=== PATIENT | female | born 1990 | race Caucasian/White ===

== ENCOUNTER 2018-11-05 11:46 | Emergency (ER) | payer OTHER ==
[~2018-11-05] VITALS: Ht 180.3 cm; Wt 117.9 kg
[~2018-11-05 11:46] MED LIST: CEPH-263 PO
[2018-11-05] MEDS ORDERED: ORPH-16 PO (12:23)
[2018-11-05] MEDS ORDERED: KETO10TA PO (12:23)
[2018-11-05] MEDS ORDERED: HYDR-3165 PO (12:23)
--- NOTE | 2018-11-05 12:23 | PHYS DOC ---
Past History Past Medical History: No Pertinent History Past Surgical History: Alcohol Use: None Drug Use: None Adult General Chief Complaint Chief Complaint: BACK PAIN OR INJURY [facility] Patient is a 28-year-old female who presents with complaint of midthoracic back pain for the last couple of days. Patient states that she saw her chiropractor last week for some pain in her back and after the treatment, she has had increase in pain that is localized to her mid thoracic region on the left. She states that pain is worsened with movement and deep breathing. She denies any radiation of the pain and has had no loss of bowel or bladder control. She denies any abdominal pain, nausea or vomiting. Review of Systems Review of Systems Constitutional: Denies fever or chills [] Respiratory: Denies cough or shortness of breath [] Cardiovascular: No additional information not addressed in [facility] [] GI: Denies abdominal pain, nausea, vomiting or diarrhea [] Musculoskeletal: Complains of midthoracic back pain [] Integument: Denies rash or skin lesions [] Allergies Allergies Allergies Coded Allergies Type Severity Reaction Last Updated Verified No Known Drug Allergies 11/22/14 No Physical Exam Physical Exam Constitutional: Well developed, well nourished, no acute distress, non-toxic appearance. [] Neck: Normal range of motion, no tenderness, supple, no stridor. [] Cardiovascular: Regular rate and rhythm [] Lungs & Thorax: Bilateral breath sounds clear to auscultation [] Abdomen: Bowel sounds normal, soft, no tenderness. [] Skin: Warm, dry, no erythema, no rash. [] Back: There is tenderness to palpation with tissue texture change and palpable spasm around T8 on the left.. [] EKG EKG [] Radiology/Procedures Radiology/Procedures [] Course & Med Decision Making Course & Med Decision Making Pertinent Labs and Imaging studies reviewed. (See chart for details) [] Dragon Disclaimer Dragon Disclaimer This electronic medical record was generated, in whole or in part, using a voice recognition dictation system. Departure Departure: Impression: Primary Impression: Acute back pain Disposition: 01 HOME, SELF-CARE Condition: STABLE Referrals: RAMESH PELAYO DO (PCP) Patient Instructions: Back Pain, Adult Scripts Orphenadrine Citrate (ORPHENADRINE CITRATE) 100 Mg Tablet.er 1 TAB PO BID PRN for MUSCLE SPASMS, #14 TAB Prov: VALERIA NG Jr. DO 11/05/18 Ketorolac Tromethamine (KETOROLAC TROMETHAMINE) 10 Mg Tablet 1 TAB PO PRN Q6HRS PRN for PAIN, #20 TAB Prov: VALERIA NG Jr. DO 11/05/18 Hydrocodone Bit/Acetaminophen (NORCO 5-325 TABLET) 1 Each Tablet 1 TAB PO PRN Q6HRS PRN for PAIN, #12 TAB 0 Refills Prov: VALERIA NG Jr. DO 11/05/18 Problem Qualifiers Primary Impression: Acute back pain Back pain location: thoracic back pain Back pain laterality: left Qualified Codes: M54.6 - Pain in thoracic spine VALERIA NG Jr. DO Nov 05, 2018 12:23
[2018-11-05] MEDS ORDERED: KETOROLAC 60 MG/2 ML VIAL. IM ONE (12:45)
[2018-11-05] MEDS ORDERED: DEXAMETHASONE SOD PHOS 10 MG/ML VIAL IM ONE (12:45)
[2018-11-05 12:53] VITALS: BP 126/84
== END 2018-11-05 12:55 | disposition home or self-care (01) ==
LOC: ER 11:46
DX: M54.6 Pain in thoracic spine (principal); Z98.890 Other specified postprocedural states
CPT/HCPCS: 96372; 99283; J1100; J1885

== ENCOUNTER 2021-03-09 13:36 | Emergency (ER) | payer OTHER ==
[~2021-03-09] VITALS: Ht 177.8 cm; Wt 128.2 kg
[~2021-03-09 13:36] MED LIST changes: +HYDR-3165 PO; +KETO10TA PO; +ORPH-16 PO
[2021-03-09] MEDS ORDERED: MORPHINE SULFATE 4 MG/ML DISP.SYRIN. ONE (14:04)
--- NOTE | 2021-03-09 14:14 | PHYS DOC ---
MODERATE SEDATION ASSESSMENT* RISKS/ALTERNATIVES Risks/Alternatives Risks and alternatives of this type of sedation and procedure discussed with: RISK/ALTERNATIVES DISCUSSED: Patient H & P ON CHART H & P H & P on chart and reviewed for co-morbid conditions and appropriate labs. H&P ON CHART: Yes STATUS PREG STATUS ASSESSED: Yes MEDS/ALLERGIES REVIEWED Meds/Allergies Reviewed Medications and Allergies including time and route of recently administered narcotics and sedatives. MEDS/ALLERGIES REVIEWED: Yes ASA RATING ASA RATING: I AIRWAY ASSESSMENT Airway Assessment Airway patency, oral function limitations, presence of caps, crowns, dentures, partials, and ability to extend neck assessed. AIRWAY ASSESSMENT: Yes MALLAMPATI SCORE MALLAMPATI SCORE: II PRE-SEDATION ASSESSMENT PRE-SEDATION PHYSICAL: Yes RIK ROSA MD Mar 09, 2021 14:14
[2021-03-09] MEDS ORDERED: MORPHINE SULFATE 4 MG/ML DISP.SYRIN. IV ONE (14:15)
[2021-03-09] MEDS ORDERED: PROPOFOL 20 ML IV ONE (14:15)
--- NOTE | 2021-03-09 14:16 | RAD ---
EXAM: Left shoulder, 2 views. HISTORY: Dislocation. COMPARISON: None. FINDINGS: 2 views of the left shoulder obtained. There is an anterior shoulder dislocation. No concom itant fracture is seen. IMPRESSION: Left shoulder dislocation. Follow-up following closed reduction is recommended to exclude post reduction concomitant fracture. Electronically signed by: Frances Chen MD (03/09/2021 2:14 PM) [id number]
--- NOTE | 2021-03-09 14:17 | PHYS DOC ---
Past History Past Medical History: No Pertinent History Past Surgical History: Appendectomy, , Other Alcohol Use: None Drug Use: None Adult General Chief Complaint Chief Complaint: SHOULDER INJURY [facility] HPI Patient is a 30-year-old female presents to the emergency room complaining of left shoulder pain. Patient states she was fishing and she went to catch her real when she felt her shoulder pop out of place. She has had this happen 2 or 5 times previously. She had surgery on her shoulder 3 years ago to fix this and has not since had a dislocation. She states this feels very similar to previous dislocations. She is sharp aching pain in her left shoulder that radiates down her arm. She has to support her arm with her leg. She is unable to move the arm. She is able to move the wrist and hand without difficulty. She denies any kind of numbness. She denies any other trauma. Review of Systems Review of Systems Complete ROS is negative unless otherwise documented in HPI Current Medications Current Medications Current Medications Medications (Trade) Dose Ordered Sig/Margaret Start Time Stop Time Status Last Admin Dose Admin Morphine Sulfate (Morphine 4mg Syringe) 4 mg STK-MED ONCE 03/09/21 14:04 03/09/21 14:04 DC Allergies Allergies Allergies Coded Allergies Type Severity Reaction Last Updated Verified No Known Drug Allergies 11/22/14 No Physical Exam Physical Exam General: Awake, alert, NAD. Well Nourished, well hydrated. Cooperative HEENT: Atraumatic, EOMI, PERRL, airway patent, moist oral mucosa Neck: Supple, trachea midline Respiratory: CTA bilaterally, normal effort, no wheezing/crackles CV: RRR, no murmur, cap refill <2 GI: Soft, nondistended, nontender, no masses MSK: Left upper extremity: Deformity at the shoulder with tenderness, 2+ radial pulse, intact sensation, intact range of motion of the hand and wrist Skin: Warm, dry, intact Neuro: A&O x3, speech NL, sensory and motor grossly intact, no focal deficits Psych: Normal affect, normal mood, not suicidal or homicidal Current Patient Data Vital Signs Vital Signs Date Time Temp Pulse Resp B/P (MAP) Pulse Ox O2 Delivery O2 Flow Rate FiO2 03/09/21 14:09 16 97 Room Air EKG EKG [] Radiology/Procedures Radiology/Procedures [] Heart Score C/O Chest Pain: N/A Risk Factors: Risk Factors: DM, Current or recent (<one month) smoker, HTN, HLP, family history of CAD, obesity. Risk Scores: Risk Factors: DM, Current or recent (<one month) smoker, HTN, HLP, family history of CAD, obesity. Course & Med Decision Making Course & Med Decision Making Pertinent Labs and Imaging studies reviewed. (See chart for details) Patient is a 30-year-old female who presents to the emergency room complaining of a left shoulder dislocation. X-ray does show shoulder dislocation. Patient will be sedated with propofol. Patient tolerated procedure well. Shoulder is placed in a shoulder immobilizer. She will follow up with her orthopedic surgeon who did her last shoulder repair. Patient's test results and vitals while in the ED were fully reviewed and discussed with the patient. Patient is stable and at this time does not need admission to the hospital. We have discussed strict return precautions and the importance of following up with their Primary Care Physician. Patient stated understanding and was given an opportunity to ask any questions. Patient is in agreement with plan. Dragon Disclaimer Dragon Disclaimer This electronic medical record was generated, in whole or in part, using a voice recognition dictation system. Joint Reduction Joint Reduction : Joint Reduction Site: shoulder (L) Conscious Sedation: Yes (Propofol) Reduction Attempts: 1 Pre-Procedure NV Exam: Yes Post-Procedure NV Exam: Yes Departure Departure: Impression: Primary Impression: Dislocation of left shoulder joint Disposition: HOME / SELF CARE / HOMELESS Condition: IMPROVED Referrals: RAMESH PELAYO DO (PCP) Patient Instructions: Shoulder Dislocation RIK ROSA MD Mar 09, 2021 14:17
[2021-03-09 15:10] VITALS: BP 137/86
--- NOTE | 2021-03-09 15:15 | RAD ---
EXAM: Left shoulder, 2 views. HISTORY: Closed reduction COMPARISON: 03/09/2021 FINDINGS: 2 views of the left shoulder obtained. There has been closed reduction of the left shoulder . There is decreased subacromial space which is projectional or due to a rotator cuff tear. No fractu re is seen. IMPRESSION: Closed reduction of prior shoulder dislocation. Electronically signed by: Frances Chen MD (03/09/2021 3:12 PM) [id number]
== END 2021-03-09 15:55 | disposition home or self-care (01) ==
LOC: ER 13:36
DX: S43.005A Unspecified dislocation of left shoulder joint, initial encounter (principal); X50.9XXA Other and unspecified overexertion or strenuous movements or postures, initial encounter; Y93.89 Activity, other specified; Y92.89 Other specified places as the place of occurrence of the external cause; Y99.8 Other external cause status
CPT/HCPCS: 23650; 73030; 96374; 99285; J2270; J2704

== ENCOUNTER → 2021-10-23 | Outpatient (CLI) | payer OTHER ==
--- NOTE | 2021-10-23 13:38 | RAD ---
EXAM: 3 Views Left Shoulder DATE: 10/23/2021 11:50 AM INDICATION: Reason: RECURRENT SHOULDER DISLOCATION, PREV IN FEBRUARY, SURG IN JUL / . Instructions: / History: COMPARISON: No Prior FINDINGS: There is no evidence for acute fracture or dislocation. AC joint is congruent. Humeral head is not hi gh riding. IMPRESSION: 1. No acute fracture or dislocation. Electronically signed by: Jesus Ng MD (10/23/2021 1:36 PM) [id number]
== END ==
LOC: RAD 11:44
PROVIDERS: ATTEND Orthopaedic Surgery
DX: M24.412 Recurrent dislocation, left shoulder (principal)
CPT/HCPCS: 73030